=== PATIENT | male | born 1945 ===

== ENCOUNTER → 2024-05-16 12:00 | Outpatient (REF) | payer MEDICARE, OTHER, SELFPAY ==
--- NOTE | 2024-05-13 15:55 | PN.DIAED02 ---
Referral
DSME Class Series Code: [id number]
Referred For: Diabetes Self-Management Training, Medical Nutrition Therapy
PHI Release Authorization Form Signed: Yes
Demographic
Patient's primary language-: Slovak
Education: High school/GED
Occupation: Retired
- Social
Primary Support Person: Self
Primary Care Takers: Self
Living Arrangements: Self & spouse
- Learning Methods
Preferred Method: Reading, Lecture/audio, Hands-on demonstration
Barriers to Learning: None
Glycemic Control
- Blood Glucose Monitoring Assessment
Date: 05/13/24 (106)
Blood glucose monitoring at home: Yes
Monitor Brands: Other (Contour Next)
Frequency: 1x per day
Time: fasting
Patient uses Alternate Site Testing: No
Patient instructed on Use and Limitation: No
- Hemoglobin A1c
Date: 04/06/24
A1C Percentage (%): 6.8
Medical History of Diabetes
Family Diabetes History: Unknown
Previous Diabetes Education: No
Previous visit with Dietitian: No
Complications/Comorbidity/Specialist: Hypertension, Hyperlipidemia
Measures
- Anthropometrics
Height: 5 ft 9 in
Actual Weight: 99.337 kg
- Blood Pressure / Pulse
Blood pressure: 148/69
Pulse: 86
- Diabetes Management
Medical Management for Diabetes: Complete physical exam (04/13/24), Dental exam (01/12/24), Dilated eye exam (10/27/23)
Self-Care
- Tobacco Usage
Do you now, or have you ever smoked?: Quit more than 1 year ago
- Alcohol & Drugs Usage
Drinks Alcohol: Yes
Amount/day: < 1 drink per day
Uses Recreational Drugs: No
- Meals & Dining
Meals & Dining: Patient skips meals: No, Food Intolerance / Allergy: No, Cultural / Latter-Day Dietary Needs: No
Primary Food Co Founder And Chairman: Self
Primary Drafter Electromechanical: Self & Spouse
Dining Out Frequency: 1-3x per week
- Physical Activity
Physical Limitation: No
Patient participates in physical Activity: Yes
Activity Types: Biking
Duration: 31-40 minutes
Frequency: 1-2x per week
Intensity: Easy
- Self Foot-Care
Foot Problems: None
- Patient-Self Assessment
Diabetes Knowledge: Poor
Feelings About Diabetes: Overwhelmed / Confused
General Health: Good
Importance of Health: Extremely
Stress Level: Medium
Diabetes Interferes With:: Family/social activities
Barriers to Diabetes Management: Nothing
Depression Survey Score: 0
- Diabetes Identification
Carries Diabetes Identification: No
Diabetes Identification Information Provided: Yes
Care Plan
- Education Needs
Patient Education Needs: Diabetes disease process, Chronic complications, Acute complications, Monitoring, Physical activity, Psychosocial Adjustment, Nutritional management, Goal setting & problem solving
Recommended Diabetes Training Program based on assessment: Outpatient Diabetes Education Program
- Plan of Care
Plan of Care:
Met with Mr. Mitchell and his today for registration and initiation of Diabetes Self-management. Pt was recommended by his PCP due to recent Dx of Diabetes, A1C of 6.8% that was noted on recent blood work in early August.
Provided Contour Next Gen glucose monitor with instructions, noted for good return demonstration and results of 106 2 hrs after lunch.
Pt was counseled with emphasis on need to adhere to an intensive lifestyle modification that includes healthy eating, exercising and monitoring blood glucose daily- fasting since he is not on any diabetes medications. Goals for physical activity
were established; Pt will start biking for 30 mins 5 times/week in the morning.
--- NOTE | 2024-05-13 16:06 | PN.DIAED04 ---
Education Record
- Education Record
Class Attended: Other (Pre-Registration for DSME classes)
DSME Class Series Code: [id number]
Instructor: Nurse Practitioner
Class Length (mins): 60
Pre-Program Knowledge: Needs review / Assistance
Pre-Test Score (%): 59
Goals
- Goal 1
Being Active: Exercise 30 minutes-5 times per week
Goals To Be Evaluated: Exercise 30 mins-5x/week
- Goal 2
Healthy Eating: Make better food choices, Follow meal plan, Reduce portion sizes
Goals To Be Evaluated: Make better food choices. Follow meal plan. Reduce portion sizes
- Goal 3
Monitoring: Follow monitoring schedule
Goals To Be Evaluated: Follow monitoring times
--- NOTE | 2024-05-17 14:16 | PN.DIAED14 ---
This is to notify you that your patient with diabetes, YUNIOR JUNIOR ( 1945), has enrolled in our diabetes self-management classes that are being held at [facility].
These classes will include an introduction to diabetes, diet, medication, exercise and prevention of complications. At the end of our class series, you will receive a report of your patient's participation and progress for your records.
Please contact me at the Diabetes Center, , if there is any particular information regarding your patient that might be helpful to me.
Sincerely,
GEORGES Lyles-, [facility]
Director
Diabetes & Nutrition Services
== END ==
LOC: DES 12:00
PROVIDERS: ATTENDING PHYSICIAN Physician Assistant Medical
DX: E11.9 Type 2 diabetes mellitus without complications (principal)
CPT/HCPCS: 99078

== ENCOUNTER → 2024-05-23 12:00 | Outpatient (REF) | payer MEDICARE, OTHER, SELFPAY ==
--- NOTE | 2024-05-24 11:03 | PN.DIAED04 ---
Education Record
- Education Record
Class Attended: Class 2
DSME Class Series Code: [id number]
Instructor: Registered Dietitian (Laquita Manzanares, RD, LDN, CDE)
Class Length (mins): 120
== END ==
LOC: DES 12:00
PROVIDERS: ATTENDING PHYSICIAN Physician Assistant Medical
DX: E11.9 Type 2 diabetes mellitus without complications (principal)
CPT/HCPCS: 99078

== ENCOUNTER → 2024-05-30 12:00 | Outpatient (REF) | payer MEDICARE, OTHER, SELFPAY | LOC: DES 12:00 | PROVIDERS: ATTENDING PHYSICIAN Physician Assistant Medical | DX: E11.9 Type 2 diabetes mellitus without complications (principal) | CPT/HCPCS: 99078 ==

== ENCOUNTER → 2024-06-06 12:00 | Outpatient (REF) | payer MEDICARE, OTHER, SELFPAY | LOC: DES 12:00 | PROVIDERS: ATTENDING PHYSICIAN Physician Assistant Medical | DX: E11.9 Type 2 diabetes mellitus without complications (principal) | CPT/HCPCS: 99078 ==